=== PATIENT | female | born 1990 | race Caucasian/White ===

== ENCOUNTER 2017-02-03 06:43 | Inpatient (IN) | payer MEDICAID, OTHER ==
--- NOTE | 2017-02-02 18:13 | PREOPHP ---
DATE OF ADMISSION: 02/03/2017 REASON FOR ADMISSION: She is to be admitted tomorrow, February 03, 2017, for repeat and tuba l ligation. HISTORY OF PRESENT ILLNESS: This is a 26-year-old female, 4, para 3, who has 3 previous gianna arean sections, whose expected date of confinement had been confirmed by serial ultrasounds by the [facility] to be 02/09/2017. She has requested sterilization at the time of the repeat jose yris section. Both procedures were discussed in the office, with its alternatives, benefits, risks, and possible complications, as well as 1% failure rate of the tubal ligation. She was allowed to as k questions, and all of her questions were answered to her satisfaction. She signed the appropriate surgical informed consents. PAST MEDICAL HISTORY: Patient denies any medical problems, diabetes, cardiac disease, liver disease , renal disease, neurological disease, or thyroid problems. ALLERGIES: SHE HAS NO KNOWN ALLERGIES. MEDICATIONS: Takes only vitamins and iron on a regular basis. FAMILY HISTORY: Noncontributory. REVIEW OF SYSTEMS: A 12-point review of systems is noncontributory. PHYSICAL EXAMINATION: GENERAL: Well-developed and nourished, in no distress, alert and oriented x3. Height is 4'11", and the weight is 145 pounds. VITAL SIGNS: Showed temperature to be 98, blood pressure 112/63, respirations are 16/minute, pulse is 72 per minute and regular. HEENT: Within normal limits. Pupils are PERRLA. NECK: Supple. Thyroid is not palpable. There is no lymphadenopathy. BREASTS: Show no masses or lumps. LUNGS: Clear to percussion and auscultation. HEART: Normal sinus rhythm without a murmur. ABDOMEN: Soft. Uterus enlarged up to 37 cm above the pubic bone. heart rate is category 1 o n the monitor. PELVIC: Normal external genitalia. Cervix is long and closed, presenting part still high. Membran es are intact. EXTREMITIES: Within normal limits. NEUROLOGIC: Patient is also normal. IMPRESSION: 1. 39 weeks' gestation. 2. Previous section x3. 3. Multiparity. The patient desires sterilization. Dictated By: MELYSSA WILLIAMSON/RAUL Conf#: [id number] DID#: [id number] CC: ADONIS BATISTA MD;*[facility]*
[~2017-02-03] VITALS: Ht 149.9 cm; Wt 67.6 kg
[~2017-02-03 06:43] MED LIST: PREN-39 PO; PREN1TAB62 PO
[2017-02-03 06:56] VITALS: Ht 149.9 cm; Wt 67.6 kg
[2017-02-03 06:57] VITALS: BP 96/60; PULSE 90; RESP 18
[2017-02-03] MEDS ORDERED: CARBOPROST 250 MCG INJ IM PRN ×2 (07:00→13:00)
[2017-02-03] MEDS ORDERED: CEFAZOLIN 2 GM/50 ML (PMX) 50 ML IV SCH ×2 (07:00→13:00)
[2017-02-03] MEDS ORDERED: METHYLERGONOVINE 0.2 MG INJ IM PRN ×2 (07:00→13:00)
[2017-02-03] MEDS ORDERED: MISOPROSTOL 200 MCG TAB PR PRN ×2 (07:00→13:00)
[2017-02-03] MEDS ORDERED: CITRIC ACID/NA CITRATE 30 ML CUP ONE (07:24)
[2017-02-03] MEDS ORDERED: METOCLOPRAMIDE 10 MG INJ ONE (07:24)
[2017-02-03] MEDS ORDERED: LACTATED RINGER'S 1,000 ML IV SCH (07:30)
[2017-02-03] MEDS ORDERED: LACTATED RINGER'S 1,000 ML IV ONE (07:30)
[2017-02-03 07:32] LABS: ADD SCAN DIFF NO
[2017-02-03 07:41] LABS: BASOPHILS % 0.4 % (0.0-2.0); EOSINOPHILS % 0.4 % (0.0-7.0); HEMATOCRIT 28.7 % (37.0-47.0); HEMOGLOBIN 9.1 g/dl (12.0-16.0); LYMPHOCYTES # 2.4 10^3/ul (0.8-2.9); LYMPHOCYTES % 42.3 % (15.0-51.0); MEAN CORPUSCULAR HEMOGLOBIN 24.8 pg (29.0-33.0); MEAN CORPUSCULAR HGB CONC 31.7 g/dl (32.0-37.0); MEAN CORPUSCULAR VOLUME 78.2 fl (82.0-101.0); MEAN PLATELET VOLUME 11.4 fl (7.4-10.4); MONOCYTE # 0.3 10^3/ul (0.3-0.9); MONOCYTES % 5.8 % (0.0-11.0); NEUTROPHIL # 2.9 10^3/ul (1.6-7.5); NEUTROPHILS % 50.4 % (39.0-77.0); NUCLEATED RED BLOOD CELLS% 0.4 /100WBC (0.0-0.0); PLATELET COUNT 154 10^3/UL (140-415); RED BLOOD COUNT 3.67 10^6/ul (4.20-5.40); RED CELL DISTRIBUTION WIDTH 14.2 % (11.5-14.5); WHITE BLOOD COUNT 5.7 10^3/ul (4.8-10.8)
[2017-02-03 07:51] LABS: INR 0.91; PROTIME 12.2 Sec (12.2-14.2)
[2017-02-03 07:52] LABS: PARTIAL THROMBOPLASTIN TIME 24.1 Sec (25.0-35.0)
[2017-02-03] MEDS ORDERED: METOCLOPRAMIDE 10 MG INJ IV ONE (08:00)
[2017-02-03] MEDS ORDERED: CITRIC ACID/NA CITRATE 30 ML CUP PO ONE (08:00)
[2017-02-03] MEDS ORDERED: FENTAnyl 50 MCG/ML VIAL ONE (08:41)
[2017-02-03] MEDS ORDERED: morphine SULFATE/PF (10 MG/10 ML) INJ ONE (08:41)
[2017-02-03] MEDS ORDERED: PHENYLephrine (100 MCG/ML) 5ML SYG ONE ×2 (08:56→09:36)
[2017-02-03] MEDS ORDERED: EPHEDrine SULFATE 50 MG/5 ML SYG ONE (09:05)
[2017-02-03] MEDS ORDERED: OXYTOCIN 30 UNITS/LR 500 ML IV ONE (09:29)
[2017-02-03] MEDS ORDERED: ONDANSETRON 4 MG INJ ONE (09:30)
[2017-02-03] MEDS ORDERED: DIPHENHYDRAMINE 50 MG INJ IV PRN ×2 (09:30→10:30)
[2017-02-03] MEDS ORDERED: ONDANSETRON 4 MG INJ IV PRN ×2 (09:30→10:30)
[2017-02-03] MEDS ORDERED: HYDROmorphONE (0.2 MG/ML) 10ML SYG IV PRN (09:30)
[2017-02-03] MEDS ORDERED: KETOROLAC 30 MG INJ IV PRN ×2 (09:30→10:30)
[2017-02-03] MEDS ORDERED: PROCHLORPERAZINE 10 MG INJ IV PRN ×2 (09:30→10:30)
[2017-02-03] MEDS ORDERED: FENTAnyl 50 MCG/ML VIAL IV PRN (09:30)
[2017-02-03] MEDS ORDERED: MEPERIDINE 25 MG INJ IV PRN (09:30)
[2017-02-03] MEDS ORDERED: HYDROmorphONE 1 MG/ML SYG IV PRN ×2 (10:30)
[2017-02-03] MEDS ORDERED: ZOLPIDEM 5 MG TAB PO PRN (10:30)
[2017-02-03] MEDS ORDERED: NALOXONE (0.4 MG/ML) INJ IV PRN (10:30)
--- NOTE | 2017-02-03 11:13 | OPR ---
DATE OF OPERATION: 02/03/2017 PREOPERATIVE DIAGNOSES: 1. A 39 weeks' gestation. 2. Previous section x3. 3. Multiparity. Patient did not want to have a tubal ligation. POSTOPERATIVE DIAGNOSES: 1. A 39 weeks' gestation. 2. Previous section x3. 3. Multiparity. The patient did not want to have a tubal ligation. FINDINGS: Baby girl, scores of 8 and 9. Weight was 6 pounds and 15 ounces. OPERATION PERFORMED: Repeat low segment transverse section. SURGEON: Dr. Melyssa River MD. COMMERCIAL ACCOUNT MANAGER: Angel Luis Batista MD COMMERCIAL ACCOUNT MANAGER: Dr. Prerna Mckeon ANESTHESIA: Spinal. ANESTHESIOLOGIST: Dr. Mckeon. ESTIMATED BLOOD LOSS: 600 mL. COMPLICATIONS: None. SPECIMENS: None. PROCEDURE AND FINDINGS: With the patient under spinal anesthesia, she was laid on the table in the dorsal recumbent position, tilted to left side. She had a Ayers catheter draining her bladder. Her abdomen and upper thighs were prepped with ChloraPrep and after 3 minutes draped in the usual steri le fashion for this procedure. Pfannenstiel incision was done removing the old scar from the skin. Once in the abdomen, a very thinned out segment was found, the large window in the uterus. This wa s opened high transversely and a living female child was delivered and immediately handed to the res piratory team fashion consultant sales who found her to have scores of 8 at first minute and 9 at five minutes. Sample cord blood was obtained. The placenta was delivered. The uterine cavity was cleansed with a clean laparotomy pad. The incision in the uterus was closed with a continuous running stitch of 0 PDS. Good hemostasis was observed. The uterus, tubes and ovaries were found to be normal. The p danette was thoroughly cleansed with a clean moist laparotomy pads. Interceed was used in the anterio r uterine incision to avoid future adhesions. Then, the abdomen was closed in layers starting with the peritoneum with continuous stitch of 2-0 chromic catgut. The fascia was closed with 2 convergen t running sutures of 0 Vicryl. The subcutaneous tissues were approximated with continuous stitch of double 0 plain catgut. Finally, the edges of skin were brought together with subcuticular 4-0 [place] cryl. Sterile pressure dressing was applied and the patient was taken to recovery room with all vit al signs stable. EBL was 600 mL of blood. Needle, sponge and instrument count at the end of the pr ocedure was correct twice. Dictated By: MELYSSA RIVER MD CR/NTS Conf#: [id number] DID#: [id number] CC: ANGEL LUIS BATISTA MD;*[facility]*
[2017-02-03] MEDS: OXYTOCIN 30 UNITS/LR 500 ML IV PRN ×2 (11:42→11:44)
[2017-02-03 12:35] VITALS: BP 111/69; PULSE 72; RESP 16
[2017-02-03 13:00] VITALS: BP 105/66; PULSE 86; RESP 16
[2017-02-03] MEDS ORDERED: OXYTOCIN 30 UNITS/LR 500 ML IV PRN (13:00)
[2017-02-03] MEDS ORDERED: OXYCODONE/ACETAMINOPHEN (5/325) TAB PO PRN (13:00)
[2017-02-03 14:00] VITALS: BP 104/66; PULSE 84; RESP 16
[2017-02-03 15:45] VITALS: BP 99/60; PULSE 80; RESP 16
[2017-02-03] MEDS: LANOLIN 7 GM TUBE TOP PRN ×2 (15:53→16:02)
[2017-02-03] MEDS: LACTATED RINGER'S 1,000 ML IV SCH (15:53)
[2017-02-03 19:20] VITALS: BP 89/51; PULSE 100; RESP 18
[2017-02-04 00:30] VITALS: BP 90/59; PULSE 69; RESP 18
[2017-02-04] MEDS: CEFAZOLIN 2 GM/50 ML (PMX) 50 ML IVPB SCH ×2 (00:41→07:58)
[2017-02-04] MEDS: LACTATED RINGER'S 1,000 ML IV SCH ×2 (01:40→04:46)
[2017-02-04 04:30] VITALS: BP 88/50; PULSE 84; RESP 18
[2017-02-04 07:52] VITALS: BP 99/53; PULSE 99; RESP 18
[2017-02-04 07:57] LABS: ADD SCAN DIFF NO
[2017-02-04 08:06] LABS: BASOPHILS % 0.3 % (0.0-2.0); EOSINOPHILS % 0.3 % (0.0-7.0); HEMATOCRIT 26.7 % (37.0-47.0); HEMOGLOBIN 8.4 g/dl (12.0-16.0); LYMPHOCYTES # 1.9 10^3/ul (0.8-2.9); LYMPHOCYTES % 25.9 % (15.0-51.0); MEAN CORPUSCULAR HEMOGLOBIN 24.9 pg (29.0-33.0); MEAN CORPUSCULAR HGB CONC 31.5 g/dl (32.0-37.0); MEAN CORPUSCULAR VOLUME 79.2 fl (82.0-101.0); MEAN PLATELET VOLUME 12.4 fl (7.4-10.4); MONOCYTE # 0.4 10^3/ul (0.3-0.9); MONOCYTES % 5.9 % (0.0-11.0); NEUTROPHIL # 4.9 10^3/ul (1.6-7.5); NEUTROPHILS % 67.2 % (39.0-77.0); NUCLEATED RED BLOOD CELLS% 0.3 /100WBC (0.0-0.0); PLATELET COUNT 138 10^3/UL (140-415); RED BLOOD COUNT 3.37 10^6/ul (4.20-5.40); RED CELL DISTRIBUTION WIDTH 14.5 % (11.5-14.5); WHITE BLOOD COUNT 7.2 10^3/ul (4.8-10.8)
[2017-02-04] MEDS ORDERED: INFLUENZA VIRUS VACCINE 0.5 ML (DISPENSING) IM* ONE (09:00)
[2017-02-04] MEDS: IBUPROFEN 800 MG TAB PO SCH ×2 (13:38→23:52)
[2017-02-04 15:40] VITALS: BP 99/58; PULSE 85; RESP 19
--- NOTE | 2017-02-04 17:42 | PN ---
Date/Time of Note Date/Time of Note DATE: 02/04/17 TIME: 17:38 OB Subjective Subjective Subjective no c/o passing flatus ambulating OB Objective Objective Objective vss afebrile abdomen soft wound dry lochia mod calf neg for tenderness OB Assessment/Plan Other Assessment: stable po c-s #1 Other plan: as ordered GRETCHEN MALHOTRA MD Feb 04, 2017 17:42
[2017-02-04] MEDS ORDERED: FERROUS GLUCONATE (EC) 325 MG TAB PO ONE (18:00)
[2017-02-04] MEDS: OXYCODONE/ACETAMINOPHEN (5/325) TAB PO PRN (18:40)
[2017-02-04 19:50] VITALS: BP 97/66; PULSE 97; RESP 19
[2017-02-05 04:00] VITALS: BP 92/50; RESP 20
[2017-02-05] MEDS: IBUPROFEN 800 MG TAB PO SCH ×3 (05:41→22:42)
--- NOTE | 2017-02-05 07:59 | PN ---
Date/Time of Note Date/Time of Note DATE: 02/05/17 TIME: 07:55 OB Subjective Subjective Subjective Afebrile.Doing well.Nursing well.Ambulatory. OB Objective Objective Objective Abdomen soft.Incision healing well.Probable discharge tomorrow. HEENT: WNL Heart: Rhythm Normal Lungs: Clear Abdomen: WNL Extremities: Normal Reflexes: Normal MELYSSA MONK MD Feb 05, 2017 07:59
[2017-02-05 08:00] VITALS: BP 89/47; PULSE 95; RESP 20
[2017-02-05] MEDS: OXYCODONE/ACETAMINOPHEN (5/325) TAB PO PRN ×2 (09:02→16:14)
[2017-02-05 11:34] VITALS: BP 89/54; PULSE 93; RESP 18
[2017-02-05 15:55] VITALS: BP 91/51; PULSE 90; RESP 20
[2017-02-05 20:00] VITALS: BP 96/57; PULSE 82; RESP 18
[2017-02-06] MEDS: OXYCODONE/ACETAMINOPHEN (5/325) TAB PO PRN ×2 (01:12→08:47)
[2017-02-06 04:15] VITALS: BP 82/53; PULSE 93; RESP 18
[2017-02-06] MEDS: IBUPROFEN 800 MG TAB PO SCH (06:36)
--- NOTE | 2017-02-06 07:32 | PD.PPDC ---
IN CLASS SPECIAL EDUCATION TEACHER Discharge Instruction Diagnosis Final Diagnosis: Term Repeat Condition Patient Condition: Good Diet Diet: Resume Regular Diet Activity/Restrictions Activity: Normal Activity Restrictions: No Exercising Nothing in the Vagina No Nubieber Wound/Drain Care Instructions Wound/Drain Care Instructions: Keep clean and dry Follow-up Follow-up with Physician: 1, Week/Weeks Return to clinic for PRODUCT SAFETY OFFICER Instructions: Fever greater than 101 Worsening abdominal pain More than 2 pads per hour Unable to tolerate diet Surgical Instructions: Incisional Drainage Incisional Redness MELYSSA MONK MD Feb 06, 2017 07:32
[2017-02-06 08:40] VITALS: BP 85/62; PULSE 74; RESP 16
[2017-02-06] MEDS ORDERED: DIPHTH/TET/ACEL PERTUSS (ADULT) 0.5 ML VIAL IM* ONE (09:00)
--- NOTE | 2017-02-07 10:14 | DS ---
DATE OF ADMISSION: 02/03/2017 DATE OF DISCHARGE: 02/06/2017 FINAL DIAGNOSES: 1. A 39 weeks' gestation. 2. Previous section x3. Gave to a baby girl. Apgars were 8 and 9. SUMMARY: This is a 26-year-old female, 4, para 3, with 3 previous sections. She w as admitted electively at 39 weeks' gestation for repeat . She was done under spinal anest hesia. Procedure was well tolerated, giving to a baby girl. scores of 8 and 9. Postop eratively, both mother and baby did well. Mother is eager to go home. Doing well, incision looks w ell, healing okay. She is discharged in good condition on a regular diet with printed instructions for activity and care of her incision. She is to follow up with me in the office in 1 week. She is discharged in good condition. Dictated By: MELYSSA WILLIAMSON/RAUL Conf#: [id number] DID#: [id number]
== END 2017-02-06 14:43 | disposition home or self-care (01) | DRG 766 ==
LOC: L-D 06:43 → PP1 12:30
PROVIDERS: ADMIT Specialist; ATTEND Specialist
PROC: 10D00Z1 Extraction of Products of Conception, Low, Open Approach (ICD-10-PCS; principal; 2017-02-03 07:30)
DX: O34.211 Maternal care for low transverse scar from previous cesarean delivery (principal); O34.593 Maternal care for other abnormalities of gravid uterus, third trimester; Z37.0 Single live birth; Z3A.39 39 weeks gestation of pregnancy
CPT/HCPCS: 85025; 85610; 85730; 86592; 86850; 86900; 86901; 86920; 87340; 90686; 90715; 94760; 99464; J0690; J1200; J1885; J2210; J2274; J2370; J2405; J2590; J2765; J3010; J7120